=== PATIENT | female | born 1965 | race Caucasian/White ===

== ENCOUNTER 2018-03-19 08:31 | Outpatient (CLI) | payer BC ==
--- NOTE | 2018-03-19 10:48 | MMO ---
BILATERAL SCREENING MAMMOGRAM: Date: 03/19/18 COMPARISON: 06/30/09. HISTORY: Screening mammography. FINDINGS: This patient's mammogram was interpreted with the assistance of computer-aided detection. There is no dominant mass or architectural distortion. The breast parenchyma is composed of scattered fibroglandular densities. There is a small mass measuring in the 7.0 mm range on the left, approximately 4-5 cm posterior to th e nipple, on left CC view, and posterior to left nipple on MLO view. There is an intramammary lymph node seen on the left. Benign calcifications are noted bilaterally. IMPRESSION: BIRADS 0: Incomplete: Need Additional Imaging Evaluation and/or Prior Mammograms for Comparison Possible new mass posterior to the left nipple, best seen on CC view. Recommend diagnostic mammograph y and focused breast ultrasound. The facility will notify patient of need for additional imaging services. POS: [facility]
== END 2018-03-19 08:32 | disposition home or self-care (01) ==
LOC: SCSMAMMO 08:31
PROVIDERS: ATTEND Family Medicine
DX: Z12.31 Encounter for screening mammogram for malignant neoplasm of breast (principal); R92.8 Other abnormal and inconclusive findings on diagnostic imaging of breast
CPT/HCPCS: 77067

== ENCOUNTER 2018-03-29 13:33 | Outpatient (CLI) | payer BC | END 2018-03-29 13:34 | disposition home or self-care (01) | LOC: BICMAMMO 13:33 | PROVIDERS: ATTEND Family Medicine | DX: N63.20 Unspecified lump in the left breast, unspecified quadrant (principal) | CPT/HCPCS: G0279 ==

== ENCOUNTER → 2018-04-03 | Day surgery (SDC) | payer BC | LOC: BICULT 12:36 | PROVIDERS: ATTEND Family Medicine | PROC: 0HBU3ZX Excision of Left Breast, Percutaneous Approach, Diagnostic (ICD-10-PCS; principal; 2018-04-03) | DX: C50.812 Malignant neoplasm of overlapping sites of left female breast (principal); Z17.0 Estrogen receptor positive status [ER+]; Z88.0 Allergy status to penicillin | CPT/HCPCS: 19083; 88305; 88341; 88342 ==

== ENCOUNTER 2018-04-12 13:24 | Outpatient (CLI) | payer BC ==
[2018-04-12 14:33] LABS: #Basophils 0.1 thou/uL (0.0-0.2); #Eosinphils 0.1 thou/uL (0.0-0.7); #Lymphocytes 1.8 thou/uL (1.20-3.40); #Monocytes 0.5 thou/uL (0.11-0.59); #Neutrophils 3.8 thou/uL (1.40-6.50); %Basophils 0.9 % (0.0-1.0); %Eosinophils 0.9 % (0.0-10.0); %Lymphocytes 29.3 % (21.0-51.0); %Monocytes 7.5 % (0.0-10.0); %Neutrophils 61.5 % (42.0-75.0); Hemoglobin 13.2 g/dL (12.0-16.0); Mean Corpuscular HGB CONC 33.2 g/dL (32.0-36.0); Mean Corpuscular Hemoglobin 30.7 pg (27.0-31.0); Mean Corpuscular Volume 92.3 fL (78.0-98.0); Mean Platelet Volume 8.5 fL (7.4-10.4); Platelet Count 207 thou/uL (130-400); RBC Distribution Width 12.1 % (11.5-14.5); Red Blood Cell (RBC) Count 4.31 mill/uL (4.20-5.40); White Blood Cell (WBC) Count 6.2 thou/uL (4.8-10.8)
[2018-04-12 14:52] LABS: Anion Gap 13 mmol/L (10-20); BUN (Urea Nitrogen) 14 mg/dL (7.0-18.7); Calc. Creatinine Clearance 0 mL/min (70-130); Calcium 9.1 mg/dL (7.8-10.44); Carbon Dioxide 23 mmol/L (22-29); Chloride 107 mmol/L (98-107); Estimated GFR-MDRD 82; Glucose 79 mg/dL (70-105); Potassium 4.3 mmol/L (3.5-5.1); Sodium 139 mmol/L (136-145)
== END 2018-04-12 13:25 | disposition home or self-care (01) ==
LOC: LABBT 13:24
PROVIDERS: ATTEND Specialist
DX: Z01.812 Encounter for preprocedural laboratory examination (principal); C50.912 Malignant neoplasm of unspecified site of left female breast
CPT/HCPCS: 80048; 85025

== ENCOUNTER 2018-04-25 06:51 | Day surgery (SDC) | payer BC ==
[2018-04-12 13:48] VITALS: BMI 37.8
[2018-04-25] MEDS ORDERED: Ketorolac Tromethamine 30 MG/ML VIAL ONE (09:55)
[2018-04-25] MEDS ORDERED: Levofloxacin 500 mg/D5W 100 ml Premix Bag ONE (10:17)
[2018-04-25] MEDS ORDERED: Isosulfan Blue 50 MG/5 ML VIAL ONE (10:23)
[2018-04-25] MEDS ORDERED: Bupivacaine/Epinephrine 0.25% 30 ML VIAL ONE ×2 (10:23→11:43)
[2018-04-25] MEDS ORDERED: Fentanyl 100 MCG/2 ML VIAL ONE (10:38)
[2018-04-25] MEDS ORDERED: Midazolam HCl 2 mg/2 ml Vial ONE (10:38)
--- NOTE | 2018-04-25 11:00 | MMO ---
MAMMOGRAPHIC GUIDED NEEDLE LOCALIZATION LEFT BREAST: CLINICAL INDICATIONS: Previously biopsied cancer of the lower inner quadrant, left breast. PROCEDURE: Informed consent was obtained. The patient was escorted to the mammographic procedural suite. The p cori's left breast was placed into compression. The lesion of interest with the indwelling clip wa s targeted, and coordinates were achieved with the mammographic grid. The left breast was prepped an d draped in the standard sterile fashion. Topical anesthesia was achieved with buffered 1% Lidocaine . Subsequently, a 10 cm [place] needle was advanced through the mass, and this was confirmed with joaquin ential mammographic views. The wire was deployed. The needle was secured to the left breast. The patient was transferred to [facility] operating suite to under excision and biopsy of the left breast mass. IMPRESSION: Successful needle and wire localization of the left breast mass of interest. Images were marked, and the case was discussed in person with the patient's surgeon, Naif del valle M.D., upon completion of the procedure. CODE CR POS: [facility]
--- NOTE | 2018-04-25 11:14 | NM ---
RADIONUCLIDE LYMPHOSCINTIGRAPHY LEFT BREAST: History: Left breast cancer. FINDINGS: After explaining the procedure and answering all questions, the periareolar area of left breast was c leansed with alcohol swabs. A total volume of 1 cc liquid containing 0.433 mCi Technetium 99M filtere d sulfur colloid was carefully injected into the dermis at the 12, 3, 6 and 9 o'clock periareolar pos ition of the left breast. Injection sites were massaged by the patient. Immediate imaging showed a focus of uptake over the left axilla in the region of the left axillary ly mph node. Skin overlying the left axillary lymph node was marked and patient sent to day surgery in good condit ion. IMPRESSION: Technically successful lymphoscintigraphy left breast revealing a single sentinel lymph node at the l eft axilla. POS: [facility]
[2018-04-25] MEDS ORDERED: Dexamethasone 20 MG/5 ML VIAL ONE (12:51)
[2018-04-25] MEDS ORDERED: ePHEDrine/0.9% NaCl/PF SYRINGE 50 mg/10 ml ONE (12:51)
[2018-04-25] MEDS ORDERED: PROPOFOL 200 MG/20 ML VIAL ONE (12:51)
[2018-04-25] MEDS ORDERED: Ondansetron HCl/PF 4 MG/2 ML Vial ONE (12:51)
[2018-04-25] MEDS ORDERED: HYDROcodone/Acetaminophen 5/325 mg Tablet ONE (14:56)
--- NOTE | 2018-04-26 10:17 | OP ---
DATE OF PROCEDURE: 04/25/2018 PREOPERATIVE DIAGNOSIS: Left breast cancer. POSTOPERATIVE DIAGNOSIS: Left breast cancer. OPERATIONS PERFORMED: Left breast mammographically needle localized lumpectomy, left axillary sentin el lymph node biopsy. SURGEON: Naif Burgess M.D. ANESTHESIA: General endotracheal. INDICATIONS: The patient is a 52-year-old white female. Recent screening mammography revealed a con cerning abnormality which was biopsied, revealing a small invasive ductal carcinoma. The lesion is n ot visualized with ultrasound and therefore I recommended mammographic needle localization for lumpec gilda. She also underwent lymphoscintigraphy preoperatively which identified sentinel lymph node with in the axilla. DESCRIPTION OF OPERATION: Informed consent was obtained. The patient was taken to the operating edie m where general endotracheal anesthesia was obtained with the patient in supine position. Left breas t and axilla were prepped with ChloraPrep and draped in sterile fashion. 3 mL of Lymphazurin was inf iltrated in the left periareolar subdermal tissue and massaged for five minutes. Attention was then turned to the axilla. Local anesthetic was infiltrated using 0.25% Marcaine with epinephrine. A tra nsverse incision was created inferior aspect of the axilla. Dissection was carried through skin and subcutaneous tissue. Neoprobe was utilized to identify areas of maximum radio intensity. I also tra toni the blue dye as it passed through the lymphatics into the axilla. There was a single dominant lymph node that both had the majority of the radioactivity as well as the blue dye. This was identified, dissected circumferentially, and passed off the field. Investing ly mphatics were ligated with 3-0 silk suture. I was able to identify another lymph node that had signi ficantly less radioactivity and no blue dye. This was also dissected in similar fashion and passed o ff the field. Touch prep of these two nodes was negative intraoperatively. The wound was irrigated and all irrigant was aspirated. Meticulous hemostasis was obtained. The wou nd was closed in layers with 3-0 and 4-0 Monocryl suture. Additional local anesthetic was infiltrate d during closure. Attention was then turned to the breast. The needle localization entered the breast on the medial as pect of the nipple areolar complex. Unfortunately, the past 8 or 9 cm from its insertion site to the edge of the needle. The localizing clip appeared to be adjacent to the needle about 2 cm from the t ip. To avoid length the incision, I decided to make a counterincision. Unfortunately, this had to b e a circumareolar incision as the needle passed directly under the nipple areolar complex. Local ane sthetic was infiltrated with 0.25% Marcaine with epinephrine. An inferior circumareolar incision was created. This had to be extended somewhat lateral to the areola as well. Dissection was carried th rough skin and subcutaneous tissue. I was able to identify the needle within the breast tissue. I i dentified where it was about 5-6 cm from the tip of the needle and dissected this until I got to abou t 4 cm from the tip of the needle. At this point, the needle was removed and the wire was replaced t o the incision. The tissue into which the wire entered was grasped with Allis clamps and a wide diss ection was carried out around the localizing wire. The wire traversed in essentially a medial to lat eral fashion. During the course of dissection, the wire was seen on the anterior aspect of the dissection, potentia lly leading to inadequate anterior margin. The remainder of the tissue specimen around the wire appe ared to be adequate. The tissue with the wire within it was removed from the breast, tagged with sut ure for orientation, and submitted to Radiology. The localizing clip was present within the tissue s pecimen. An additional anterior margin was obtained of about 4-5 mm and also tagged for orientation. The woun d was irrigated. Meticulous hemostasis obtained with electrocautery. The wound was then closed in l otero with 3-0 and 4-0 Monocryl suture. Dermabond was placed externally over both the lumpectomy sit e and the axillary site. There were no complications. Patient tolerated the procedure well and was taken to recovery room in stable condition.
--- NOTE | 2018-04-30 09:20 | MMO ---
SPECIMEN RADIOGRAPH LEFT BREAST: CLINICAL HISTORY: Lower inner quadrant left breast cancer. TECHNIQUE: Specimen was submitted postprocedural. FINDINGS: There is a radiograph specimen, which reveals the distal aspect of the curved wire, as well as a biop sy marking clip and surrounding mammographic density. IMPRESSION: Specimen radiograph as above. POS: [facility]
== END 2018-04-25 15:16 | disposition home or self-care (01) ==
LOC: SDC 06:51
PROVIDERS: ATTEND Specialist
PROC: 0HBU0ZZ Excision of Left Breast, Open Approach (ICD-10-PCS; principal; 2018-04-25)
PROC: 07B60ZX Excision of Left Axillary Lymphatic, Open Approach, Diagnostic (ICD-10-PCS; principal; 2018-04-25)
DX: C50.812 Malignant neoplasm of overlapping sites of left female breast (principal); C77.3 Secondary and unspecified malignant neoplasm of axilla and upper limb lymph nodes; J45.909 Unspecified asthma, uncomplicated; Z17.0 Estrogen receptor positive status [ER+]; Z79.899 Other long term (current) drug therapy; Z88.0 Allergy status to penicillin; Z88.8 Allergy status to other drugs, medicaments and biological substances
CPT/HCPCS: 19281; 76098; 78195; 88307; 88333; 88334; 88342; A9541; J0131; J1100; J1885; J1956; J2250; J2405; J2704; J3010; Q9968

== ENCOUNTER 2018-05-16 07:26 | Day surgery (SDC) | payer BC ==
[2018-05-10 12:29] VITALS: BMI 37.8
[2018-05-16] MEDS ORDERED: Ketorolac Tromethamine 30 MG/ML VIAL ONE (08:39)
[2018-05-16] MEDS ORDERED: Bupivacaine/Epinephrine 0.25% 30 ML VIAL ONE (08:58)
[2018-05-16] MEDS ORDERED: Sodium Bicarbonate 2.5 MEQ/5 ML VIAL ONE (08:58)
[2018-05-16] MEDS ORDERED: Fentanyl 100 MCG/2 ML VIAL ONE (09:01)
[2018-05-16] MEDS ORDERED: Levofloxacin 500 mg/D5W 100 ml Premix Bag ONE (10:02)
[2018-05-16] MEDS ORDERED: Dexamethasone 20 MG/5 ML VIAL ONE (11:46)
[2018-05-16] MEDS ORDERED: PHENYLEPHRINE-NS 100 MCG/ML 10 ML SYRINGE ONE (11:46)
[2018-05-16] MEDS ORDERED: PROPOFOL 200 MG/20 ML VIAL ONE (11:46)
[2018-05-16] MEDS ORDERED: Lidocaine 1% PF 5 ML VIAL ONE (11:46)
--- NOTE | 2018-05-16 12:01 | OP ---
DATE OF PROCEDURE: 05/16/2018 PREOPERATIVE DIAGNOSIS: Left breast cancer with positive margin from lumpectomy. POSTOPERATIVE DIAGNOSIS: Left breast cancer with positive margin from lumpectomy. OPERATION PERFORMED: Reexcision of medial margin of the left breast lumpectomy. SURGEON: Naif Burgess M.D. ANESTHESIA: General with laryngeal mask airway. INDICATIONS: The patient is a 52-year-old female. She was previously diagnosed with left breast can cer and underwent a needle localized lumpectomy. She had an extensive lumpectomy specimen, but unfor tunately still had a positive medial margin. She is taken to the operating room at this time for ree xcision of that margin. DESCRIPTION OF OPERATION: Informed consent was obtained. The patient taken to the operating room wh ere general anesthesia obtained with the patient in supine position. Left breast was prepped with Ch loraPrep and draped in sterile fashion. Local anesthetic was infiltrated using 0.25% Marcaine with e pinephrine. Prior incision was reopened. Dissection was carried through skin and subcutaneous tissu e into the lumpectomy cavity. The cavity was aspirated. There was appropriate dark thin serosanguin eous fluid. Attention was turned to the medial aspect. This unfortunately is almost entirely subare olar. I obtained a medial margin varied between 3 and 10 mm in thickness beginning on the anterior a spect just underlying the incision and carried the dissection medially and then around to the posteri or aspect as well. The specimen was removed intact and tagged for orientation and passed off to path ology. Meticulous hemostasis obtained. The wound was closed in layers with 3-0 and 4-0 Monocryl. A dditional local anesthetic was infiltrated. Dermabond was placed externally. There were no complica tions. The patient tolerated the procedure well and was taken to recovery in stable condition.
[2018-05-16] MEDS ORDERED: traMADol HCl 50 MG TAB ONE (12:20)
== END 2018-05-16 12:20 | disposition home or self-care (01) ==
LOC: SDC 07:26
PROVIDERS: ATTEND Specialist
PROC: 0HBU0ZZ Excision of Left Breast, Open Approach (ICD-10-PCS; principal; 2018-05-16)
DX: C50.912 Malignant neoplasm of unspecified site of left female breast (principal); D24.2 Benign neoplasm of left breast; N60.92 Unspecified benign mammary dysplasia of left breast; N60.32 Fibrosclerosis of left breast; J45.909 Unspecified asthma, uncomplicated; Z79.899 Other long term (current) drug therapy; Z88.0 Allergy status to penicillin; Z17.0 Estrogen receptor positive status [ER+]; Z98.890 Other specified postprocedural states
CPT/HCPCS: 88307; 88341; 88342; J0131; J1100; J1885; J1956; J2001; J2704; J3010

== ENCOUNTER 2018-07-29 08:51 | Outpatient (CLI) | payer BC ==
[2018-07-29 11:14] LABS: Anion Gap 10 mmol/L (10-20); BUN (Urea Nitrogen) 9 mg/dL (7.0-18.7); Calc. Creatinine Clearance 0 mL/min (70-130); Carbon Dioxide 27 mmol/L (22-29); Chloride 106 mmol/L (98-107); Estimated GFR-MDRD 90; Glucose 78 mg/dL (70-105); Sodium 139 mmol/L (136-145)
[2018-07-29 11:56] LABS: Band 35 % (5-11); Hemoglobin 12.2 g/dL (12.0-16.0); Lymphocytes 9 % (21-51); MDiff Complete? YES; Mean Corpuscular HGB CONC 31.6 g/dL (32.0-36.0); Mean Corpuscular Hemoglobin 29.7 pg (27.0-31.0); Mean Corpuscular Volume 94.1 fL (78.0-98.0); Mean Platelet Volume 8.7 fL (7.4-10.4); Metamyelocyte 3 % (0-0); Monocytes 5 % (0-10); Myelocyte 3 % (0-0); Neutrophil 44 % (42-75); PLT Morphology Comment Appears Adequate; Platelet Count 174 thou/uL (130-400); Polychromasia SLIGHT = 2-3 cells (100X) (0-2/hpf); RBC Distribution Width 13.4 % (11.5-14.5); Reactive Lymphocytes 1 % (0-10); White Blood Cell (WBC) Count 16.6 thou/uL (4.8-10.8)
--- NOTE | 2018-07-29 16:53 | EKG ---
Test Reason : Blood Pressure : / mmHG Vent. Rate : 065 BPM Atrial Rate : 065 BPM P-R Int : 150 ms QRS Dur : 078 ms QT Int : 396 ms P-R-T Axes : 048 009 027 degrees QTc Int : 411 ms Sinus rhythm with marked sinus arrhythmia and PAC Low voltage QRS Cannot rule out Anterior infarct , age undetermined Abnormal ECG Confirmed by DR. Letty MOROCHO ([id number]) on 07/29/2018 4:52:59 PM Referred By: NITA Confirmed By:DR. Letty MOROCHO
== END 2018-07-29 08:52 | disposition home or self-care (01) ==
LOC: LABBT 08:51
PROVIDERS: ATTEND Specialist
DX: Z01.818 Encounter for other preprocedural examination (principal); C50.912 Malignant neoplasm of unspecified site of left female breast
CPT/HCPCS: 80048; 85025; 93005; 93010

== ENCOUNTER 2018-08-06 06:02 | Day surgery (SDC) | payer BC ==
[2018-07-29 09:46] VITALS: BMI 37.8
[2018-08-06] MEDS ORDERED: Levofloxacin 500 mg/D5W 100 ml Premix Bag ONE (06:49)
[2018-08-06] MEDS ORDERED: Ketorolac Tromethamine 30 MG/ML VIAL ONE (06:49)
[2018-08-06] MEDS ORDERED: Lidocaine 1% (PF) 30 ML VIAL ONE (09:08)
[2018-08-06] MEDS ORDERED: Bupivacaine/Epinephrine 0.25% 30 ML VIAL ONE (09:08)
[2018-08-06] MEDS ORDERED: Fentanyl 100 MCG/2 ML VIAL ONE (09:14)
[2018-08-06] MEDS ORDERED: Midazolam HCl 2 mg/2 ml Vial ONE (09:14)
--- NOTE | 2018-08-06 10:59 | OP ---
DATE OF PROCEDURE: 08/06/2018 PREOPERATIVE DIAGNOSIS: Left breast cancer. POSTOPERATIVE DIAGNOSIS: Left breast cancer. OPERATION PERFORMED: Placement of right subclavian standard size power compatible MediPort. SURGEON: Dr. Naif Burgess MATE CHIEF: Paul Blair, medical student. ANESTHESIA: Total intravenous anesthesia per Vladimir Quach CRNA and local anesthetic using 0.25% Niki ine with epinephrine. INDICATIONS: The patient is a 52-year-old white female. She has undergone treatment for left breast cancer. She is undergoing chemotherapy and [facility] at [facility] DESCRIPTION OF OPERATION: Informed consent was obtained. The patient was taken to the operating edie m where total intravenous anesthesia was obtained with the patient in supine position. Right pericla vicular area was prepped with ChloraPrep and draped in sterile fashion. Local anesthetic was infiltr ated and a large gauge needle was passed under the clavicle in the subclavian vein. Guidewire was pa ssed through the needle and fluoroscopically confirmed to enter the superior vena cava. Additional l ocal anesthetic was infiltrated and transverse incision was created based on needle insertion site. A subcutaneous pocket was dissected inferiorly. Introducer dilator was passed over the guidewire und er fluoroscopic guidance. The guidewire and dilator were removed, and the catheter was passed throug h the introducer. The tip of the catheter was positioned at the atriocaval junction and the catheter was trimmed to the appropriate length and secured to the locking hub of the MediPort. The port was then placed in the subcutaneous pocket where it was secured to the pectoral fascia with 2 interrupted sutures of 3-0 Prolene. The incision was then closed in layers with 3-0 and 4-0 Monocryl. Addition al local anesthetic was infiltrated. The port was cannulated with a Drew needle and it aspirated bl ood freely and was flushed with heparinized saline. Dermabond was placed externally on the skin inci chay. There were no complications. Blood loss was negligible. The patient tolerated the procedure well and was taken to recovery room in stable condition. FINDINGS: The patient had unusual anatomy. The standard size port was placed in the right subclavia n vein uneventfully. Blood loss was negligible. There were no complications. Post-procedure chest x-ray documents good position of the port.
--- NOTE | 2018-08-06 11:10 | RAD ---
SINGLE VIEW OF THE CHEST: Comparison: None. History: Mediport placement. FINDINGS: Single view of the chest shows a normal sized cardiomediastinal silhouette. There is a right sided Me diport with the tip in the superior vena cava. There is no evidence of pneumothorax. There is no evid ence of consolidation, mass, or pleural effusion. IMPRESSION: Status post Mediport placement without evidence of complication. POS: [facility]
[2018-08-06] MEDS ORDERED: PROPOFOL 200 MG/20 ML VIAL ONE (16:28)
== END 2018-08-06 11:00 | disposition home or self-care (01) ==
LOC: SDC 06:02
PROVIDERS: ATTEND Specialist
PROC: 02HV33Z Insertion of Infusion Device into Superior Vena Cava, Percutaneous Approach (ICD-10-PCS; principal; 2018-08-06)
DX: C50.912 Malignant neoplasm of unspecified site of left female breast (principal); J45.909 Unspecified asthma, uncomplicated; Z88.0 Allergy status to penicillin
CPT/HCPCS: 71045; C1788; J0131; J1642; J1885; J1956; J2001; J2250; J2704; J3010

== ENCOUNTER 2019-03-13 10:13 | Outpatient (CLI) | payer BC ==
--- NOTE | 2019-03-13 13:30 | MRI ---
MRI CERVICAL SPINE WITHOUT CONTRAST: HISTORY: Neck pain radiating down the shoulder. COMPARISON: None. FINDINGS: Straightening of the normal cervical lordosis may be due to patient position or muscle spasm. There is no significant STIR hyperintensity to suggest ligamentous injury. There is no evidence of STIR hy perintensity to suggest vertebral body edema. Vertebral body height is maintained. There is no frac ture. There is appropriate T1 marrow signal intensity of the cervical vertebrae. There is 1.1 mm of retrolisthesis of C4 upon C5, and there is 1.5 mm of retrolisthesis of C5 upon C6. The visualized brain parenchyma, cervicomedullary junction, cervical cord, and upper thoracic cord howell ve normal size and signal intensity. C2-C3: No significant central canal stenosis or neural foraminal narrowing. C3-C4: No significant central canal stenosis. Minimal bilateral foraminal narrowing due to uncovert ebral hypertrophy, left greater than right. C4-C5: Broad-based disk osteophyte complex abuts the thecal sac. The subarachnoid space is effaced, and there is minimal flattening of the cervical cord. No cord hyperintensity. Mild central canal s tenosis. Bilateral uncovertebral hypertrophy results in mild to moderate bilateral foraminal narrowi ng. C5-C6: Broad-based disk osteophyte complex abuts the thecal sac. The ventral subarachnoid space is nearly effaced. No significant mass effect upon the cervical cord. Mild central canal stenosis. Bi lateral uncovertebral hypertrophy results in moderate right and moderate to severe left foraminal kyler rowing. C7-T1: No significant central canal stenosis. Mild bilateral foraminal narrowing. IMPRESSION: Degenerative changes of the cervical spine, as above. There is no evidence of high-grade central can al stenosis. There are varying degrees of neural foraminal narrowing, as detailed above. POS: [facility]
== END 2019-03-13 10:14 | disposition home or self-care (01) ==
LOC: SCSMRI 10:13
PROVIDERS: ATTEND Family Medicine
DX: M47.22 Other spondylosis with radiculopathy, cervical region (principal); M48.02 Spinal stenosis, cervical region; M48.03 Spinal stenosis, cervicothoracic region
CPT/HCPCS: 72141

== ENCOUNTER 2019-05-05 08:58 | Outpatient (CLI) | payer BC ==
--- NOTE | 2019-05-05 09:38 | MMO ---
Bilateral MAMMO Bilat Diag [facility]ATO. CLINICAL HISTORY: Patient is 53 years old and is seen for diagnostic exam. The patient has no family history of breast cancer. The patient has no personal history of cancer. The patient has a history of left Lumpectomy in April, - malignant, left Excisional Biopsy in April, - malignant - RE-EXCISION WAS DONE PER PATIENT and left Ultrasound Guided Core Biopsy in March, - malignant. VIEWS: The views performed were: bilateral craniocaudal with tomosynthesis; bilateral mediolateral oblique with tomosynthesis; and bilateral mediolateral with tomosynthesis. FILMS COMPARED: The present examination has been compared to prior imaging studies performed at [facility] on 02/19/2014, 03/22/2015, 04/04/2016 and 03/29/2018. MAMMOGRAM FINDINGS: There are scattered fibroglandular densities. There is an area of architectural distortion with associated post-surgical scar seen in the left breast. There are no suspicious masses, suspicious calcifications, or new areas of architectural distortion. IMPRESSION: A ROUTINE FOLLOW-UP MAMMOGRAM IN 1 YEAR IS RECOMMENDED. THE RESULTS OF THIS EXAM WERE SENT TO THE PATIENT. ACR BI-RADS Category 2 - Benign finding MAMMOGRAPHY NOTE: 1. A negative mammogram report should not delay a biopsy if a dominant of clinically suspicious mass is present. 2. Approximately 10% to 15% of breast cancers are not detected by mammography. 3. Adenosis and dense breasts may obscure an underlying neoplasm. Reported by: KATHY SKY MD Electonically Signed: [id number]
== END 2019-05-05 08:59 | disposition home or self-care (01) ==
LOC: BICMAMMO 08:58
PROVIDERS: ATTEND Specialist
DX: C50.912 Malignant neoplasm of unspecified site of left female breast (principal)
CPT/HCPCS: 77066; G0279

== ENCOUNTER 2019-12-05 10:25 | Outpatient (CLI) | payer BC ==
--- NOTE | 2019-12-05 10:46 | RAD ---
XR Heel Rt 2 View STANDARD HISTORY: Right heel pain. COMPARISON: None. FINDINGS: There is a spur at the plantar fascia insertion on the calcaneus. No Achilles spur is noted . The subtalar joint is normal. IMPRESSION: Plantar calcaneal spur.
== END 2019-12-05 10:26 | disposition home or self-care (01) ==
LOC: SCSRAD 10:25
PROVIDERS: ATTEND Family Medicine
DX: M79.671 Pain in right foot (principal); M77.31 Calcaneal spur, right foot

== ENCOUNTER 2021-05-09 14:35 | Outpatient (CLI) | payer BC | END 2021-05-09 14:36 | disposition home or self-care (01) | LOC: BICMAMMO 14:35 | PROVIDERS: ATTEND Specialist | DX: Z08 Encounter for follow-up examination after completed treatment for malignant neoplasm (principal); Z85.3 Personal history of malignant neoplasm of breast | CPT/HCPCS: 77066; G0279 ==

== ENCOUNTER 2022-03-16 11:31 | Outpatient (CLI) | payer BC | END 2022-03-16 11:32 | disposition home or self-care (01) | LOC: SCSRAD 11:31 | PROVIDERS: ATTEND Family Medicine | DX: M25.561 Pain in right knee (principal) ==

== ENCOUNTER 2022-05-11 08:28 | Outpatient (CLI) | payer BC | END 2022-05-11 08:29 | disposition home or self-care (01) | LOC: BICMAMMO 08:28 | PROVIDERS: ATTEND Specialist | DX: Z08 Encounter for follow-up examination after completed treatment for malignant neoplasm (principal); R92.1 Mammographic calcification found on diagnostic imaging of breast; Z85.3 Personal history of malignant neoplasm of breast; Z98.890 Other specified postprocedural states | CPT/HCPCS: 77066; G0279 ==